=== PATIENT | female | born 1965 | race Caucasian/White ===

== ENCOUNTER 2017-07-14 10:54 | Emergency (ER) | payer OTHER ==
[~2017-07-14] VITALS: Ht 170.2 cm; Wt 66.0 kg
[~2017-07-14 10:54] MED LIST: IBUP600T26 PO; TRAM50 PO
[2017-07-14 10:57] VITALS: BP 134/79; PULSE 84; RESP 18; TEMP 98.4; O2SAT 98
--- NOTE | 2017-07-14 11:23 | PD ---
HPI Chief Complaint: Injury Time Seen by Provider: 11:16 Travel History International Travel<30 days: No Contact w/Intl Traveler<30days: No Traveled to known affect area: No History of Present Illness HPI 52 y/f with a 1 hour history of left wrist pain after a picture frame fell on her wrist. She complains of aching pain over her left radial stylus with limited ROM due to pain. Describes her pain as severe and has not taken anything for this pain yet. Denies numbness, tingling, weakness. No Crepitus, popping, or clocking. PFSH Past Medical History Diminished Hearing: No Immunizations Current: Yes Tetanus Vaccination: > 5 Years Influenza Vaccination: No ?: Not : 2 Para: 2 Tubal Ligation: Yes Past Surgical History Genitourinary Surgery: Yes (cystocele bladder 08) Gynecologic Surgery: Yes (BLADDER TAC) Hysterectomy: Yes (partial) Social History Alcohol Use: Yes (3-4 beers 5 nights weekly) Tobacco Use: Yes (1-2 pk daily) Substance Use: No Allergies-Medications (Allergen,Severity, Reaction): Coded Allergies: codeine (Verified Allergy, Severe, ITCHING & SWELLING, 07/14/17) hydrocodone (Verified Allergy, Severe, SWELLING , HIVES, 07/14/17) Reported Meds & Prescriptions Reported Meds & Active Scripts Active No Active Prescriptions or Reported Medications Review of Systems Except as stated in HPI: all other systems reviewed are Neg Physical Exam Narrative GENERAL: Well-nourished, well-developed patient. SKIN: Focused skin assessment warm/dry. HEAD: Normocephalic. EYES: No scleral icterus. No injection or drainage. NECK: Supple, trachea midline. No JVD or lymphadenopathy. CARDIOVASCULAR: Regular rate and rhythm without murmurs, gallops, or rubs. RESPIRATORY: Breath sounds equal bilaterally. No accessory muscle use. MUSCULOSKELETAL: No cyanosis, or edema. Ecchymotic over radial stylus skin intact BACK: Nontender without obvious deformity. EXTREMITY: Right wrist mildly tender radial aspect of wrist. Full passive active range of motion and limited active ROM due to pain. No joint swelling. Normal opposition of thumb. Distal extremity neurovascularly intact. +2 pulses Data Data Last Documented VS Vital Signs Date Time Temp Pulse Resp B/P (MAP) Pulse Ox O2 Delivery O2 Flow Rate FiO2 07/14/17 10:57 98.4 84 18 134/79 (97 98 Orders Orders Wrist, Complete ([id number]) (07/14/17 ) Splint Or Brace Apply/Monitor (07/14/17 12:13) MDM Medical Decision Making Medical Screen Exam Complete: Yes Emergency Medical Condition: Yes Differential Diagnosis Left Wrist fracture versus contusion versus tendinitis Narrative Course 52-year-old female with a one hour history of right wrist pain after being [place] by a picture frame [place] the [employer] today. Since the pain has been constant has not increased and describes it as aching. Denies crepitus, numbness, tingling, weakness. Imaging study: No acute process Physical exam: Left hand/wrist neurovascular intact, no deformities, FROM, mild TTP to radial stylus with ecchymosis. +2 pulses with brisk cap refill Suspect contusion of the wrist. She denies any other medical history or any other concerns today. Advised patient to return to the emergency department if injury worsens, persists, or develops increased edema, erythema. Diagnosis Primary Impression: Contusion of wrist, left Qualified Codes: S60.212A - Contusion of left wrist, initial encounter Referrals: Primary Care Physician Additional Instructions: Follow-up with primary care physician within 2 days You may rest, ice, elevate and Rickey wrap he'll rest for symptom relief May take Motrin per package instructions for pain relief If you're wrist becomes more swollen, red, or pain increases significantly return to the emergency department further treatment and evaluation Scripts No Active Prescriptions or Reported Meds Disposition: 01 DISCHARGE HOME Condition: Stable Marta Mitchell Jul 14, 2017 11:23
--- NOTE | 2017-07-14 12:09 | RADRPT ---
EXAM DATE/TIME: 07/14/2017 11:36 [facility] COMPARISON: NAVICULAR VIEWS LEFT, April 23, 2014, 15:33. INDICATIONS : Picture frame fell onto left wrist, has pain, swelling MEDICAL HISTORY : None. SURGICAL HISTORY : None. ENCOUNTER: Initial ACUITY: 1 day PAIN SCORE: 3/10 LOCATION: Left wrist FINDINGS: Three view examination of the left wrist demonstrates no soft tissue swelling, dislocation, or fractu re. The carpal bones are in normal alignment. The joint spaces are maintained. Bony mineralization is normal. CONCLUSION: 1. No acute fracture of the wrist identified. Jorje Benton MD on July 14, 2017 at 12:07 Board Certified Radiologist. This report was verified electronically.
== END 2017-07-14 12:27 | disposition home or self-care (01) ==
LOC: PHEFT 10:54
DX: S60.212A Contusion of left wrist, initial encounter (principal); F17.200 Nicotine dependence, unspecified, uncomplicated; W20.8XXA Other cause of strike by thrown, projected or falling object, initial encounter; Y92.512 Supermarket, store or market as the place of occurrence of the external cause
CPT/HCPCS: 73110; 99283